=== PATIENT | female | born 1955 | race American Indian/Alaskan Native ===

== ENCOUNTER 2018-05-21 05:46 | Emergency (ER) | payer MEDICARE, BC ==
[~2018-05-21] VITALS: Ht 162.6 cm; Wt 61.2 kg
[~2018-05-21 05:46] MED LIST: ALBU90OI INH; BENZ100A PO; CITA20; CLON1; CYCL10 PO; DHEA PO; DIAZ10 PO; DIAZ5 PO; GENT.3OPSA OU; KETO10 PO; LISI20 PO; LOSA25 PO; META800 PO; MULTI VITAMIN1 EACH PO; OMEP20ER PO; OMEP40CA12 PO; OXYACE5T PO; PROACE50 PO; PROP160ER PO; Percocet 5-3251 EACH PO; SUCR1 PO; VICODIN 5-3001 EACH PO; VIT B12; VIT D; Zithromax250 MG PO
[2018-05-21 06:36] LABS: BASOPHILS ABSOLUTE AUTO 0.03 K/mm3 (0.00-0.23); BASOPHILS PERCENT AUTO 1 % (0-2); EOSINOPHILS ABSOLUTE AUTO 0.16 K/mm3 (0.00-0.68); EOSINOPHILS PERCENT AUTO 3 % (0-6); Hematocrit 41.4 % (33.0-51.0); Hemoglobin 13.6 g/dL (11.5-16.0); IMMATURE GRAN ABSOLUTE AUTO 0.03 K/mm3 (0.00-0.10); IMMATURE GRAN PERCENT AUTO 1 % (0-1); LYMPHOCYTES ABSOLUTE AUTO 1.27 K/mm3 (0.84-5.20); LYMPHOCYTES PERCENT AUTO 24 % (21-46); MONOCYTES ABSOLUTE AUTO 0.68 K/mm3 (0.16-1.47); MONOCYTES PERCENT AUTO 13 % (4-13); Mean Corpuscular HGB 28.1 pg (26.0-34.0); Mean Corpuscular HGB Conc 32.9 g/dL (31.5-36.5); Mean Corpuscular Volume 86 fL (80-100); Mean Platelet Volume 9.3 fL (9.1-12.4); NEUTROPHILS ABSOLUTE AUTO 3.04 K/mm3 (1.96-9.15); NEUTROPHILS PERCENT AUTO 58 % (41-73); Platelet Count 302 K/mm3 (150-400); RDW Coefficient Variation 13.2 % (11.7-14.2); RDW Standard Deviation 41.1 fL (35.1-46.3); Red Blood Cell Count 4.84 M/mm3 (3.80-5.20); White Blood Cell Count 5.21 K/mm3 (4.00-11.30)
[2018-05-21 06:51] LABS: Alanine Aminotransfer (ALT/SGP 80 U/L (12-78); Albumin/Globulin Ratio 1.1 (0.8-1.8); Alk Phos 97 U/L (50-136); Anion Gap 9 mmol/L (6-16); Aspartate Aminotrans (AST/SGOT 52 U/L (12-37); Bilirubin, Total 0.5 mg/dL (0.1-1.0); Blood Urea Nitrogen 13 mg/dL (8-24); Bun/Creatinine Ratio 25.5 (12.0-20.0); CO2, Blood 24 mmol/L (21-32); Calcium, Blood 9.3 mg/dL (8.5-10.1); Chloride, Blood 102 mmol/L (98-108); Creatinine, Blood 0.51 mg/dL (0.40-1.00); Globulin, Blood 3.6 g/dL (2.2-4.0); Glomerular Filtration Rate >60 (60-); Glucose, Blood 114 mg/dL (70-99); Potassium, Blood 3.9 mmol/L (3.5-5.5); Sodium, Blood 135 mmol/L (136-145); Total Protein, Blood 7.6 g/dL (6.4-8.2)
[2018-05-21 08:20] LABS: Source, Urine Clean Catch
[2018-05-21 08:53] LABS: Bilirubin, Urine Neg (Neg); Blood, Urine 2+ (Neg); Glucose Qualitative, Urine Neg (Neg); Ketones, Urine 2+ (Neg); Leukocyte Esterase, Urine Neg (Neg); Nitrite, Urine Neg (Neg); Protein, Urine Neg (Neg); Specific Gravity, Urine 1.015 (1.003-1.022); Urobilinogen, Urine NORM (Normal); pH, Urine 6.5 (5.0-8.0)
[2018-05-21 09:02] LABS: Appearance, Urine Clear (Clear); Color, Urine Yellow (P-Yellow)
[2018-05-21 09:04] LABS: Bacteria Not Seen /hpf; Red Blood Cells, Urine 0-2 /hpf (0-2); Squamous Epithelial Cells Not Seen /hpf (Few); White Blood Cells, Urine Not Seen /hpf (0-5)
[2018-05-21] MEDS ORDERED: Zofran4 MG PO (10:58)
[2018-05-21] MEDS ORDERED: Protonix40 MG PO (10:58)
[2018-05-21] MEDS ORDERED: Ultram50 MG PO (10:58)
== END 2018-05-21 11:04 | disposition home or self-care (01) ==
LOC: ER 05:46
PROVIDERS: Emergency Medicine
DX: R10.11 Right upper quadrant pain (principal); M54.9 Dorsalgia, unspecified; R11.2 Nausea with vomiting, unspecified; Z88.5 Allergy status to narcotic agent; Z79.899 Other long term (current) drug therapy; I10 Essential (primary) hypertension; G43.909 Migraine, unspecified, not intractable, without status migrainosus; F17.210 Nicotine dependence, cigarettes, uncomplicated
CPT/HCPCS: 36415; 74176; 80053; 81001; 83690; 85025; 93005; 93010; 96361; 96374; 96375; 96376; 99284-25; C9113; J1170; J2405; J2550; J7030

== ENCOUNTER → 2019-03-27 | Outpatient (CLI) | payer MEDICARE, BC ==
[~2019-03-27] MED LIST changes: +Protonix40 MG PO; +SUCR1; +Ultram50 MG PO; +Zofran4 MG PO
[2019-03-27 17:58] LABS: BASOPHILS ABSOLUTE AUTO 0.03 K/mm3 (0.00-0.23); BASOPHILS PERCENT AUTO 1 % (0-2); EOSINOPHILS ABSOLUTE AUTO 0.21 K/mm3 (0.00-0.68); EOSINOPHILS PERCENT AUTO 4 % (0-6); Hematocrit 40.3 % (33.0-51.0); Hemoglobin 12.8 g/dL (11.5-16.0); IMMATURE GRAN ABSOLUTE AUTO 0.01 K/mm3 (0.00-0.10); IMMATURE GRAN PERCENT AUTO 0 % (0-1); LYMPHOCYTES ABSOLUTE AUTO 1.83 K/mm3 (0.84-5.20); LYMPHOCYTES PERCENT AUTO 31 % (21-46); MONOCYTES ABSOLUTE AUTO 0.49 K/mm3 (0.16-1.47); MONOCYTES PERCENT AUTO 8 % (4-13); Mean Corpuscular HGB Conc 31.8 g/dL (31.5-36.5); Mean Corpuscular Volume 91 fL (80-100); Mean Platelet Volume 10.1 fL (9.1-12.4); NEUTROPHILS PERCENT AUTO 57 % (41-73); Platelet Count 261 K/mm3 (150-400); RDW Coefficient Variation 13.4 % (11.7-14.2); RDW Standard Deviation 45.5 fL (35.1-46.3); Red Blood Cell Count 4.41 M/mm3 (3.80-5.20); White Blood Cell Count 5.97 K/mm3 (4.00-11.30)
[2019-03-27 18:51] LABS: Alanine Aminotransfer (ALT/SGP 24 U/L (12-78); Albumin, Blood 3.9 g/dL (3.4-5.0); Albumin/Globulin Ratio 1.4 (0.8-1.8); Alk Phos 68 U/L (50-136); Anion Gap 4 mmol/L (6-16); Aspartate Aminotrans (AST/SGOT 22 U/L (12-37); Bilirubin, Total 0.3 mg/dL (0.1-1.0); Blood Urea Nitrogen 13 mg/dL (8-24); Bun/Creatinine Ratio 20.8 (12.0-20.0); CO2, Blood 29 mmol/L (21-32); Calcium, Blood 9.3 mg/dL (8.5-10.1); Chloride, Blood 110 mmol/L (98-108); Creatinine, Blood 0.63 mg/dL (0.40-1.00); Globulin, Blood 2.8 g/dL (2.2-4.0); Glomerular Filtration Rate >60 (60-); Glucose, Blood 100 mg/dL (70-99); Potassium, Blood 4.1 mmol/L (3.5-5.5); Sodium, Blood 143 mmol/L (136-145); Total Protein, Blood 6.7 g/dL (6.4-8.2)
== END | disposition home or self-care (01) ==
LOC: LAB SHORT 17:25 → LAB EV 17:25 → LAB 17:25
PROVIDERS: Hospitalist
DX: R55 Syncope and collapse (principal); R42 Dizziness and giddiness
CPT/HCPCS: 80053; 85025

== ENCOUNTER → 2019-10-30 | Outpatient (CLI) | payer MEDICARE, BC | END | disposition home or self-care (01) | LOC: LAB SHORT 15:30 → LAB 15:30 | DX: B35.3 Tinea pedis (principal) | CPT/HCPCS: 87210 ==

== ENCOUNTER → 2019-12-27 | Outpatient (CLI) | payer BC, MEDICARE ==
[2019-12-27 20:05] LABS: Free Thyroxine 1.02 ng/dL (0.70-1.60)
[2019-12-27 20:07] LABS: Thyroid Stimulating Hormone 1.05 uIU/mL (0.360-4.800)
== END | disposition home or self-care (01) ==
LOC: LAB SHORT 18:08 → LAB 18:08
PROVIDERS: Hospitalist
DX: I10 Essential (primary) hypertension (principal)
CPT/HCPCS: 84439; 84443

== ENCOUNTER → 2020-08-06 | Outpatient (CLI) | payer MEDICARE, BC | END | disposition home or self-care (01) | LOC: LAB SHORT 13:00 → LAB 13:00 | DX: R19.7 Diarrhea, unspecified (principal) | CPT/HCPCS: 80053; 83690; 85025; 87015; 87045; 87046; 87205; 87493; 87899 ==

== ENCOUNTER → 2020-08-14 | Outpatient (CLI) | payer MEDICARE, BC | END | disposition home or self-care (01) | LOC: LAB 14:10 → LAB SHORT 14:10 → LAB FUT 08-06 18:00 → LAB SHORT 08-06 18:00 → EDSTATUS 08-06 18:00 | DX: R19.7 Diarrhea, unspecified (principal) | CPT/HCPCS: 87015; 87045; 87046; 87205; 87328; 87329; 87493; 87899 ==

== ENCOUNTER → 2020-10-07 | Outpatient (CLI) | payer MEDICARE, BC | END | disposition home or self-care (01) | LOC: PLD 14:18 → LAB SHORT 14:18 | DX: L57.0 Actinic keratosis (principal) | CPT/HCPCS: 88305; 88312; 88342 ==

== ENCOUNTER → 2022-08-24 | Outpatient (CLI) | payer OTHER, MEDICARE, BC ==
[~2022-08-24] MED LIST changes: +Celexa20 MG PO; +TRAZ50 PO
[2022-08-24 14:24] LABS: BASOPHILS ABSOLUTE AUTO 0.04 K/mm3 (0.00-0.23); BASOPHILS PERCENT AUTO 1 % (0-2); EOSINOPHILS PERCENT AUTO 5 % (0-6); Hematocrit 41.1 % (33.0-51.0); Hemoglobin 13.5 g/dL (11.5-16.0); IMMATURE GRAN ABSOLUTE AUTO 0.03 K/mm3 (0.00-0.10); IMMATURE GRAN PERCENT AUTO 1 % (0-1); LYMPHOCYTES ABSOLUTE AUTO 1.05 K/mm3 (0.84-5.20); LYMPHOCYTES PERCENT AUTO 24 % (21-46); MONOCYTES ABSOLUTE AUTO 0.53 K/mm3 (0.16-1.47); MONOCYTES PERCENT AUTO 12 % (4-13); Mean Corpuscular HGB 28.7 pg (26.0-34.0); Mean Corpuscular HGB Conc 32.8 g/dL (31.5-36.5); Mean Corpuscular Volume 87 fL (80-100); NEUTROPHILS ABSOLUTE AUTO 2.49 K/mm3 (1.96-9.15); NEUTROPHILS PERCENT AUTO 57 % (41-73); Platelet Count 242 K/mm3 (150-400); RDW Coefficient Variation 13.2 % (11.7-14.2); RDW Standard Deviation 42.5 fL (35.1-46.3); Red Blood Cell Count 4.71 M/mm3 (3.80-5.20); White Blood Cell Count 4.34 K/mm3 (4.00-11.30)
[2022-08-24 17:01] LABS: Very Low Density Lipoprot Chol 10 mg/dL (6-32)
[2022-08-24 17:09] LABS: Alanine Aminotransfer (ALT/SGP 27 U/L (12-78); Albumin, Blood 3.7 g/dL (3.4-5.0); Albumin/Globulin Ratio 1.2 (0.8-1.8); Alk Phos 63 U/L (50-136); Anion Gap 5 mmol/L (6-16); Aspartate Aminotrans (AST/SGOT 20 U/L (12-37); Bilirubin, Total 0.4 mg/dL (0.1-1.0); Blood Urea Nitrogen 13 mg/dL (8-24); Bun/Creatinine Ratio 18.3 (12.0-20.0); CO2, Blood 27 mmol/L (21-32); Calcium, Blood 9.4 mg/dL (8.5-10.1); Chloride, Blood 108 mmol/L (98-108); Cholesterol 159 mg/dL (50-200); Creatinine, Blood 0.71 mg/dL (0.40-1.00); Glomerular Filtration Rate 94 (60-); Glucose, Blood 130 mg/dL (70-99); HDL Cholesterol 79 mg/dL (>39); LDL/HDL RATIO 0.9; Low Density Lipoprotein Chol 70 mg/dL (0-110); Potassium, Blood 3.7 mmol/L (3.5-5.5); Sodium, Blood 140 mmol/L (136-145); Total Protein, Blood 6.7 g/dL (6.4-8.2); Triglycerides 52 mg/dL (30-160)
== END | disposition home or self-care (01) ==
LOC: LAB SHORT 10:10
PROVIDERS: Hospitalist
DX: I10 Essential (primary) hypertension (principal)
CPT/HCPCS: 80053; 80061; 84443; 85025

== ENCOUNTER 2024-05-27 07:23 | Emergency (ER) | payer OTHER, MEDICARE, BC ==
[~2024-05-27] VITALS: Ht 162.6 cm; Wt 55.8 kg
[2024-05-27] MEDS ORDERED: Morphine Sulfate 4 MG/1 ML Injection IV ONE ×2 (08:10→10:25)
[2024-05-27] MEDS ORDERED: NS 1,000 ML IV SCH (08:10)
[2024-05-27] MEDS ORDERED: Ondansetron HCl 2 MG / ML 2ML Vial IV ONE (08:10)
[2024-05-27 08:17] LABS: BASOPHILS ABSOLUTE AUTO 0.06 K/mm3 (0.00-0.23); BASOPHILS PERCENT AUTO 1 % (0-2); EOSINOPHILS ABSOLUTE AUTO 0.13 K/mm3 (0.00-0.68); EOSINOPHILS PERCENT AUTO 1 % (0-6); Hematocrit 41.1 % (33.0-51.0); Hemoglobin 13.5 g/dL (11.5-16.0); IMMATURE GRAN ABSOLUTE AUTO 0.07 K/mm3 (0.00-0.10); IMMATURE GRAN PERCENT AUTO 1 % (0-1); LYMPHOCYTES PERCENT AUTO 11 % (21-46); MONOCYTES ABSOLUTE AUTO 1.19 K/mm3 (0.16-1.47); MONOCYTES PERCENT AUTO 10 % (4-13); Mean Corpuscular HGB 28.4 pg (26.0-34.0); Mean Corpuscular HGB Conc 32.8 g/dL (31.5-36.5); Mean Corpuscular Volume 87 fL (80-100); NEUTROPHILS ABSOLUTE AUTO 9.43 K/mm3 (1.96-9.15); NEUTROPHILS PERCENT AUTO 77 % (41-73); Platelet Count 288 K/mm3 (150-400); RDW Coefficient Variation 13.2 % (11.7-14.2); RDW Standard Deviation 41.7 fL (35.1-46.3); Red Blood Cell Count 4.75 M/mm3 (3.80-5.20); White Blood Cell Count 12.18 K/mm3 (4.00-11.30)
[2024-05-27 08:35] LABS: Albumin, Blood 3.8 g/dL (3.4-5.0); Albumin/Globulin Ratio 1.1 (0.8-1.8); Bilirubin, Total 0.5 mg/dL (0.1-1.0); Bun/Creatinine Ratio 17.4 (12.0-20.0); Calcium, Blood 9.2 mg/dL (8.5-10.1); Creatinine, Blood 0.75 mg/dL (0.40-1.00); Globulin, Blood 3.6 g/dL (2.2-4.0); Potassium, Blood 3.2 mmol/L (3.5-5.5); Total Protein, Blood 7.4 g/dL (6.4-8.2)
[2024-05-27] MEDS ORDERED: HYDROmorphone HCl/Pf 1MG SYR IV ONE (08:35)
[2024-05-27 10:10] LABS: Source, Urine Clean Catch
[2024-05-27] MEDS ORDERED: Ketorolac Tromethamine 15mg Vial IV ONE (10:35)
[2024-05-27] MEDS ORDERED: CefTRIAXone Sodium 1,000 MG in NS 100 ML IV ONE (10:35)
[2024-05-27] MEDS ORDERED: Potassium Chloride 20 MEQ TabCR PO ONE (10:35)
[2024-05-27 10:36] LABS: Appearance, Urine Hazy (Clear); Bilirubin, Urine Neg (Neg); Blood, Urine 5+ (Neg); Glucose Qualitative, Urine Neg (Neg); Ketones, Urine 1+ (Neg); Leukocyte Esterase, Urine Neg (Neg); Nitrite, Urine Neg (Neg); Protein, Urine Neg (Neg); Specific Gravity, Urine 1.015 (1.003-1.022); Urobilinogen, Urine NORM (Normal)
[2024-05-27 10:55] LABS: Color, Urine Pale Yellow (P-Yellow)
[2024-05-27 10:56] LABS: Red Blood Cells, Urine 50-100 /hpf (0-2); White Blood Cells, Urine 0-2 /hpf (0-5)
[2024-05-27 10:57] LABS: Squamous Epithelial Cells Not Seen /hpf (Few)
[2024-05-27 10:58] LABS: Bacteria Few /hpf; Mucus Mod (0-Heavy); Yeast/Fungi Urine Not Seen /hpf
[2024-05-27] MEDS ORDERED: IBUP600 PO (11:10)
[2024-05-27] MEDS ORDERED: ACET500 PO (11:10)
[2024-05-27] MEDS ORDERED: CEPH500 PO (11:10)
[2024-05-27 11:38] VITALS: BP 125/77
== END 2024-05-27 11:38 | disposition home or self-care (01) ==
LOC: ER 07:23
PROVIDERS: Emergency Medicine
DX: N13.30 Unspecified hydronephrosis (principal); Z79.899 Other long term (current) drug therapy; I10 Essential (primary) hypertension; G43.909 Migraine, unspecified, not intractable, without status migrainosus; Z87.891 Personal history of nicotine dependence
CPT/HCPCS: 74177; 80053; 81001; 83690; 83735; 85025; 87086; 96361; 96365-59; 96375; 96376; 99284-25; A9270; J0696; J1171; J1885; J2270; J2405; J7030; Q9967

== ENCOUNTER 2024-05-29 01:00 | Emergency (ER) | payer OTHER, MEDICARE, BC ==
[~2024-05-29] VITALS: Ht 162.6 cm; Wt 55.8 kg
[~2024-05-29 01:00] MED LIST changes: +ACET500 PO; +CEPH500 PO; +IBUP600 PO
[2024-05-29] MEDS ORDERED: Morphine Sulfate 4 MG/1 ML Injection IV ONE ×2 (02:50→08:20)
[2024-05-29] MEDS ORDERED: Ondansetron HCl 2 MG / ML 2ML Vial IV ONE (02:55)
[2024-05-29] MEDS ORDERED: HYDROmorphone HCl/Pf 1MG SYR IV ONE ×3 (03:50→06:50)
[2024-05-29 06:41] VITALS: BP 140/93
[2024-05-29] MEDS ORDERED: Percocet 5-3251 EACH PO (08:04)
[2024-05-29] MEDS ORDERED: OXYACE7.5T PO (08:06)
[2024-05-29] MEDS ORDERED: Diphth,Pertuss(Acell),Tet Vac 0.5 ML VIAL IM ONE (08:10)
== END 2024-05-29 08:35 | disposition home or self-care (01) ==
LOC: ER 01:00
DX: S52.591A Other fractures of lower end of right radius, initial encounter for closed fracture (principal); S81.011A Laceration without foreign body, right knee, initial encounter; W10.9XXA Fall (on) (from) unspecified stairs and steps, initial encounter; I10 Essential (primary) hypertension; E16.2 Hypoglycemia, unspecified; Z88.5 Allergy status to narcotic agent; Z79.899 Other long term (current) drug therapy; Z87.891 Personal history of nicotine dependence
CPT/HCPCS: 70450; 72125; 73100; 73110; 73560-RT; 90715; J1171; J2270; J2405

== ENCOUNTER 2024-06-14 16:07 | Day surgery (SDC) | payer OTHER, MEDICARE, BC ==
[2024-06-14] VITALS (10 sets, daily range): BP systolic 116–134; BP diastolic 66–84
[~2024-06-14] VITALS: Ht 157.5 cm; Wt 55.4 kg
[~2024-06-14 16:07] MED LIST changes: +OXYACE7.5T PO
[2024-06-14] MEDS ORDERED: EpiNEPhrine 1 MG/1 ML 1ML Vial ONE (16:11)
[2024-06-14] MEDS ORDERED: Ropivacaine 0.5% HCL/PF 5 MG/ML 30ML Vial ONE (16:11)
[2024-06-14] MEDS ORDERED: Dexamethasone Sod Phos 10 MG/ML 1ML VIAL ONE ×2 (16:11→17:19)
[2024-06-14] MEDS ORDERED: FentaNYL Citrate 50 MCG/ML 2 ML Injection ONE (16:11)
[2024-06-14] MEDS ORDERED: Lactated Ringer's 1,000 ML IV SCH (16:15)
[2024-06-14] MEDS ORDERED: AMLO5 PO (16:21)
[2024-06-14] MEDS ORDERED: METO25ER PO (16:22)
--- NOTE | 2024-06-14 16:58 | NUR ---
Ambulatory in Day Surgery. History, Chart, Medications and Allergies reviewed before start of procedure. Lungs clear T/O to Auscultation. Patient confirms NPO status and agrees with scheduled surgery. Pre-Op teaching done. Pt verbalizes understanding. Patient States Post-Procedure ride home has been arranged. PT BELONGINGS PLACED UNDERNEATH GURNEY FOR SAFEKEEPING. PT JEWELRY GIVEN TO HER SPOUSE FOR SAFEKEEPING.
[2024-06-14] MEDS ORDERED: CeFAZolin Sodium 2,000 MG in NS 100 ML IV SCH (17:00)
[2024-06-14] MEDS ORDERED: propofoL 20 ML IV ONE (17:04)
--- NOTE | 2024-06-14 17:09 | NUR ---
1642: Dr. Rojas at bedside to perform peripheral nerve block in preop for post-op pain. 1645: Timeout complete by this RN. Premeds given by Dr. Rojas. 1649: Block time start. 1653: Block time end. Pt on continous V/S monitoring for duration. VSS throughout. Pt tolerated block well.
[2024-06-14] MEDS ORDERED: Ondansetron HCl 2 MG / ML 2ML Vial ONE (17:19)
[2024-06-14] MEDS ORDERED: Ketorolac Tromethamine 30mg Vial ONE (17:19)
[2024-06-14] MEDS ORDERED: HYDROmorphone HCl/Pf 1MG SYR IV PRN (17:35)
[2024-06-14] MEDS ORDERED: Albuterol 2.5 MG/3 ML VIAL INH PRN (17:35)
[2024-06-14] MEDS ORDERED: FentaNYL Citrate 50 MCG/ML 2 ML Injection IV PRN (17:35)
[2024-06-14] MEDS ORDERED: Droperidol 5 mg/2 ml Vial IV PRN (17:40)
[2024-06-14] MEDS ORDERED: LORazepam 2 MG/ML 1ML Injection IV PRN (17:40)
--- NOTE | 2024-06-14 19:15 | NUR ---
PT RECEIVED DISCHARGE INSTRUCTIONS. ANSWERED ALL QUESTIONS. PT HAS PAIN MEDS AT HOME, SCRIPT SENT HOME. ALL BELONGINGS RETURNED TO PATIENTPT DRESSING REMAINED CDI WITH CIRCULATION INTACT. SLING IN PLACE. ABLE TO AMBULATE WITH A STEADY GAIT. D/C VIA WHEELCHAIR TO CAR. .
== END 2024-06-14 23:31 | disposition home or self-care (01) ==
LOC: ORSCMMR 16:07 → ORD 16:07 → EOR 16:08 → ORD 18:30
PROVIDERS: Orthopaedic Surgery Sports Medicine
PROC: 0PSH04Z Reposition Right Radius with Internal Fixation Device, Open Approach (ICD-10-PCS; principal; 2024-06-14 18:30)
DX: S52.551A Other extraarticular fracture of lower end of right radius, initial encounter for closed fracture (principal); F32.A Depression, unspecified; I10 Essential (primary) hypertension; K21.9 Gastro-esophageal reflux disease without esophagitis; J44.9 Chronic obstructive pulmonary disease, unspecified; Z79.899 Other long term (current) drug therapy; Z87.891 Personal history of nicotine dependence
CPT/HCPCS: C1713; C1889; J0171; J0690; J1100; J1885; J2405; J2704; J2795; J3010; J7120

== ENCOUNTER 2024-08-01 12:00 | Day surgery (SDC) | payer OTHER, MEDICARE, BC ==
[~2024-08-01] VITALS: Ht 162.6 cm; Wt 56.5 kg
[~2024-08-01 12:00] MED LIST changes: +AMLO5 PO; +Lactated Ringer's 1,000 ML IV ONE; +METO25ER PO; +Triamcinolone Inj Susp 40 MG / ML 1ML Vial ONE
[2024-08-01] MEDS ORDERED: CeFAZolin Sodium 2,000 MG VIAL ONE (12:04)
[2024-08-01] MEDS ORDERED: Tranexamic Acid 100 ML IV ONE (12:06)
[2024-08-01] MEDS ORDERED: FentaNYL Citrate 50 MCG/ML 2 ML Injection ONE (12:07)
[2024-08-01] MEDS ORDERED: Midazolam HCl 1MG / ML 2ML Vial ONE (12:08)
[2024-08-01] MEDS ORDERED: Lactated Ringer's 1,000 ML IV ONE (12:45)
[2024-08-01] MEDS ORDERED: EPINEPhrine HCl 1 MG/ML 1ML Amp ONE (12:48)
[2024-08-01] MEDS ORDERED: Bupivacaine 0.5% HCl 5 MG/ML 30MLVIAL ONE (12:48)
[2024-08-01] MEDS ORDERED: propofoL 20 ML IV ONE (13:06)
--- NOTE | 2024-08-01 13:10 | NUR ---
08/01/24 1310 Tammie Haile TIME OUT AT: 1247 PT TOLERATED NERVE BLOCK WELL. PT ON 2L VIA NC, MONITORING VS, OXYGEN SATURATION WNL. MO, CIVIL SERVICE CLERK, PERFORMED THE BLOCK. ALL QUESTIONS ANSWERED, CONCERNS ADDRESSED. WCADENIKE.
[2024-08-01] MEDS ORDERED: Ondansetron HCl 2 MG / ML 2ML Vial ONE (13:16)
[2024-08-01] MEDS ORDERED: Dexamethasone Sod Phos 10 MG/ML 1ML VIAL ONE (13:16)
[2024-08-01] MEDS ORDERED: Ketorolac Tromethamine 30mg Vial ONE (13:17)
--- NOTE | 2024-08-01 13:25 | NUR ---
08/01/24 1325 Tobi Alexander 1ML 0.5% MARCAINE MIXED WITH 1ML (40MG) KENALOG PER DR ORTIZ TO INJECT AT BILATERAL THUMBS. 3ML 0.5% MARCAINE MIXED WITH 1ML (40MG) KENALOG PER DR ORTIZ TO INJECT AT LEFT SHOULDER.
[2024-08-01 14:48] VITALS: BP 134/88
== END 2024-08-01 14:48 | disposition home or self-care (01) ==
LOC: ORSCSDS 12:00
PROVIDERS: Orthopaedic Surgery Sports Medicine
PROC: 3E0U3BZ Introduction of Anesthetic Agent into Joints, Percutaneous Approach (ICD-10-PCS; principal; 2024-08-01 13:30)
PROC: 3E0U33Z Introduction of Anti-inflammatory into Joints, Percutaneous Approach (ICD-10-PCS; principal; 2024-08-01 13:30)
PROC: 0PPH04Z Removal of Internal Fixation Device from Right Radius, Open Approach (ICD-10-PCS; principal; 2024-08-01 13:30)
DX: T84.84XA Pain due to internal orthopedic prosthetic devices, implants and grafts, initial encounter (principal); S62.101D Fracture of unspecified carpal bone, right wrist, subsequent encounter for fracture with routine healing; M12.812 Other specific arthropathies, not elsewhere classified, left shoulder; M19.042 Primary osteoarthritis, left hand; M19.041 Primary osteoarthritis, right hand; I10 Essential (primary) hypertension; Z79.899 Other long term (current) drug therapy
CPT/HCPCS: J0171; J0690; J1100; J1885; J2250; J2405; J2704; J3010; J3301; J7120

== ENCOUNTER 2025-06-25 11:35 | Day surgery (SDC) | payer OTHER, MEDICARE, BC ==
[~2025-06-25] VITALS: Ht 162.6 cm; Wt 58.9 kg
[~2025-06-25 11:35] MED LIST changes: -Lactated Ringer's 1,000 ML IV ONE; -Triamcinolone Inj Susp 40 MG / ML 1ML Vial ONE
[2025-06-25] MEDS ORDERED: CeFAZolin Sodium 2,000 MG VIAL ONE (11:54)
[2025-06-25] MEDS ORDERED: FentaNYL Citrate 50 MCG/ML 2 ML Injection ONE (13:03)
--- NOTE | 2025-06-25 13:21 | NUR ---
06/25/25 1321 OK MITCHELL AXILLARY BLOCK W/ DR ZELAYA
--- NOTE | 2025-06-25 14:00 | NUR ---
06/25/25 1400 Lexie Lynn NOTED CAT SCRATCH ON OP HAND, DR. GOMEZ IS AWARE AND OK TO PROCEED
[2025-06-25] MEDS ORDERED: Ondansetron HCl 2 MG / ML 2ML Vial ONE (14:21)
[2025-06-25] MEDS ORDERED: Dexamethasone Sod Phos 10 MG/ML 1ML VIAL ONE (14:21)
[2025-06-25] MEDS ORDERED: Albuterol 2.5 MG/3 ML VIAL ONE (15:00)
--- NOTE | 2025-06-25 15:17 | NUR ---
06/25/25 1517 Jesusita Loredo TX GIVEN PT IMPROVED DECREASED COUGHING,LUNG SOUNDS IMPROVED POST BREATHING TX, MILD EXPIRATORY WHEEZES, PULSE OX 100% ON RA.
[2025-06-25 16:15] VITALS: BP 136/95
--- NOTE | 2025-06-25 16:16 | NUR ---
06/25/25 1616 Jesusita Loredo 1555 PT DCD HOME IN STABLE CONDITION, ACCOMPANIED BY BOOKKEEPING CLERK. PT VERBALIZED UNDERSTANDING OF ALL DISCHARGE INSTRUCTIONS.
== END 2025-06-25 15:58 | disposition home or self-care (01) ==
LOC: ORSCSDS 11:35
PROVIDERS: Orthopaedic Surgery
PROC: 0RQT0ZZ Repair Left Carpometacarpal Joint, Open Approach (ICD-10-PCS; principal; 2025-06-25 13:00)
DX: M18.0 Bilateral primary osteoarthritis of first carpometacarpal joints (principal); I10 Essential (primary) hypertension; F32.A Depression, unspecified; K21.9 Gastro-esophageal reflux disease without esophagitis; Z87.891 Personal history of nicotine dependence; Z79.899 Other long term (current) drug therapy
CPT/HCPCS: C1713; J0690; J1100; J2405; J2704; J3010; J7120